=== PATIENT | male | born 1955 | race Caucasian/White ===

== ENCOUNTER 2023-12-09 21:40 | Emergency (ER) | payer OTHER ==
[~2023-12-09 21:40] MED LIST: Iopamidol 300 61% 100 ML VIAL FS ONE
[2023-12-09] MEDS ORDERED: Morphine 4 MG/ML VIAL ONE (22:53)
[2023-12-09] MEDS ORDERED: Ondansetron PF 4 MG/2 ML Vial ONE (22:53)
[2023-12-09 23:09] LABS: #Basophils 0.05 10x3/uL (0.0-0.2); #Eosinphils 0.29 10x3/uL (0.0-0.5); #Monocytes 0.73 10x3/uL (0.0-1.1); #Neutrophils 3.78 10x3/uL (1.5-8.4); %Basophils 0.6 % (0.0-2.0); %Eosinophils 3.8 % (0.0-6.0); %Lymphocytes 36.9 % (18.0-47.0); %Monocytes 9.4 % (0.0-10.0); %Neutrophils 48.9 % (40.0-75.0); Hemoglobin 15.5 g/dL (13.5-17.5); Mean Corpuscular Hemoglobin 32.4 pg (27.0-33.0); Mean Platelet Volume 8.5 fL (7.4-10.4); Platelet Count 260 10x3/uL (150-450); RBC Distribution Width 13.4 % (11.5-14.5); Red Blood Cell (RBC) Count 4.78 10x6/uL (4.32-5.72); White Blood Cell (WBC) Count 7.7 10x3/uL (3.5-10.5)
[2023-12-09 23:26] LABS: ALT (SGPT) 39 U/L (8-55); AST (SGOT) 24 U/L (5-34); Albumin 4.1 g/dL (3.4-4.8); Alkaline Phosphatase 94 U/L (40-110); Anion Gap 13 mmol/L (10-20); BUN (Urea Nitrogen) 16 mg/dL (8.4-25.7); Bilirubin, Total 0.3 mg/dL (0.2-1.2); Calc. Creatinine Clearance 0 mL/min (70-130); Calcium 9.5 mg/dL (7.8-10.44); Carbon Dioxide 23 mmol/L (23-31); Chloride 104 mmol/L (98-107); Estimated GFR 71; Globulin 2.8 g/dL (2.4-3.5); Glucose 95 mg/dL (80-115); Lipase 25 U/L (8-78); Potassium 4.2 mmol/L (3.5-5.1); Protein, Total 6.9 g/dL (5.8-8.1); Sodium 136 mmol/L (136-145)
[2023-12-10] MEDS ORDERED: Morphine 4 MG/ML VIAL ONE (01:03)
[2023-12-10] MEDS ORDERED: HYDROcodone/Acetaminophen 10/325 mg Tablet ONE (01:13)
[2023-12-10] MEDS ORDERED: Ondansetron PF 4 MG/2 ML Vial ONE (01:13)
== END 2023-12-10 02:20 | disposition home or self-care (01) ==
LOC: CSHERS 21:40
DX: M54.6 Pain in thoracic spine (principal); R10.12 Left upper quadrant pain; M25.571 Pain in right ankle and joints of right foot; I10 Essential (primary) hypertension; F17.210 Nicotine dependence, cigarettes, uncomplicated; W19.XXXA Unspecified fall, initial encounter
CPT/HCPCS: 70450; 71260; 72125; 74177; 80053; 83690; 85025; 96374; 96375; 96376; J2270; J2405; Q9967